=== PATIENT | male | born 1935 | race Caucasian/White ===

== ENCOUNTER 2016-08-01 15:45 | Inpatient (IN) | payer MEDICARE ==
[2016-08-01] MEDS: HYDROcodone/Acetaminophen 10/325 mg Tablet PO PRN (17:45)
[2016-08-01] MEDS: Gabapentin 300 MG CAP PO SCH (20:50)
[2016-08-01] MEDS: Senokot 8.6 MG TAB PO SCH ×2 (20:50→21:06)
[2016-08-01] MEDS: Bisacodyl 5 MG TAB PO SCH (20:50)
[2016-08-01] MEDS: traMADol HCl 50 MG TAB PO SCH (20:50)
[2016-08-01] MEDS: Zolpidem Tartrate 5 MG TAB PO SCH (20:50)
[2016-08-01] MEDS: Brimonidine Tartrate 0.2% Ophth Soln 5 ml Bottle EA EYE SCH (20:52)
[2016-08-01] MEDS: PILOCARPINE HCL EA EYE SCH (20:52)
[2016-08-02] MEDS: traMADol HCl 50 MG TAB PO SCH ×3 (08:31→20:39)
[2016-08-02] MEDS: Aspirin 81 mg Enteric Coated Tablet PO SCH (08:32)
[2016-08-02] MEDS: Multivitamin W/ Minerals 1 TAB PO SCH (08:33)
[2016-08-02] MEDS: Clopidogrel Bisulfate 75 MG TAB PO SCH (08:33)
[2016-08-02] MEDS: Fluticasone Propionate Nasal Spray 16 gm Bottle NASAL SCH (08:34)
[2016-08-02] MEDS: Atorvastatin Calcium 40 MG TAB PO SCH (08:34)
[2016-08-02] MEDS: Brimonidine Tartrate 0.2% Ophth Soln 5 ml Bottle EA EYE SCH ×2 (08:45→20:44)
[2016-08-02] MEDS: Latanoprost 0.005% Ophth Soln 2.5 ml Bottle EA EYE SCH (08:46)
[2016-08-02] MEDS: PILOCARPINE HCL EA EYE SCH ×4 (08:46→20:45)
[2016-08-02] MEDS: HYDROcodone/Acetaminophen 10/325 mg Tablet PO PRN ×2 (10:07→17:12)
[2016-08-02] MEDS: Gabapentin 300 MG CAP PO SCH (20:38)
[2016-08-02] MEDS: Bisacodyl 5 MG TAB PO SCH (20:38)
[2016-08-02] MEDS: Zolpidem Tartrate 5 MG TAB PO SCH (20:44)
[2016-08-02] MEDS: Senokot 8.6 MG TAB PO SCH (20:45)
[2016-08-03] MEDS: HYDROcodone/Acetaminophen 10/325 mg Tablet PO PRN ×6 (00:32→21:37)
[2016-08-03 06:32] LABS: ALT (SGPT) 17 U/L (0-55); AST (SGOT) 20 U/L (5-34); Alkaline Phosphatase 61 U/L (40-150); Anion Gap 12 mmol/L (10-20); BUN (Urea Nitrogen) 36 mg/dL (8.4-25.7); Bilirubin, Total 0.5 mg/dL (0.2-1.2); Calc. Creatinine Clearance 59 mL/min (70-130); Calcium 8.2 mg/dL (7.8-10.44); Carbon Dioxide 24 mmol/L (23-31); Chloride 104 mmol/L (98-107); Estimated GFR-MDRD 52; Protein, Total 5.9 g/dL (5.8-8.1)
[2016-08-03] MEDS: traMADol HCl 50 MG TAB PO SCH ×2 (08:09→14:28)
[2016-08-03] MEDS: Clopidogrel Bisulfate 75 MG TAB PO SCH (08:10)
[2016-08-03] MEDS: Aspirin 81 mg Enteric Coated Tablet PO SCH (08:10)
[2016-08-03] MEDS: Atorvastatin Calcium 40 MG TAB PO SCH (08:10)
[2016-08-03] MEDS: Multivitamin W/ Minerals 1 TAB PO SCH (08:10)
[2016-08-03] MEDS: Fluticasone Propionate Nasal Spray 16 gm Bottle NASAL SCH (08:15)
[2016-08-03] MEDS: Latanoprost 0.005% Ophth Soln 2.5 ml Bottle EA EYE SCH (08:16)
[2016-08-03] MEDS: Brimonidine Tartrate 0.2% Ophth Soln 5 ml Bottle EA EYE SCH ×2 (08:16→21:40)
[2016-08-03] MEDS: PILOCARPINE HCL EA EYE SCH ×4 (08:17→21:39)
[2016-08-03] MEDS ORDERED: HYDROcodone/Acetaminophen 10/325 mg Tablet ONE (21:12)
[2016-08-03] MEDS: Gabapentin 300 MG CAP PO SCH (21:37)
[2016-08-03] MEDS: Zolpidem Tartrate 5 MG TAB PO SCH (21:37)
[2016-08-03] MEDS: Senokot 8.6 MG TAB PO SCH (21:39)
[2016-08-03] MEDS: Bisacodyl 5 MG TAB PO SCH (21:40)
[2016-08-04] MEDS ORDERED: HYDROcodone/Acetaminophen 10/325 mg Tablet ONE ×5 (02:52→16:38)
[2016-08-04] MEDS: HYDROcodone/Acetaminophen 10/325 mg Tablet PO PRN ×5 (02:56→21:27)
[2016-08-04] MEDS: Fluticasone Propionate Nasal Spray 16 gm Bottle NASAL SCH (09:46)
[2016-08-04] MEDS: Multivitamin W/ Minerals 1 TAB PO SCH (09:47)
[2016-08-04] MEDS: Clopidogrel Bisulfate 75 MG TAB PO SCH (09:47)
[2016-08-04] MEDS: Aspirin 81 mg Enteric Coated Tablet PO SCH (09:47)
[2016-08-04] MEDS: Atorvastatin Calcium 40 MG TAB PO SCH (09:47)
[2016-08-04] MEDS: Latanoprost 0.005% Ophth Soln 2.5 ml Bottle EA EYE SCH (09:48)
[2016-08-04] MEDS: PILOCARPINE HCL EA EYE SCH ×4 (09:49→21:33)
[2016-08-04] MEDS: Brimonidine Tartrate 0.2% Ophth Soln 5 ml Bottle EA EYE SCH ×2 (09:49→21:32)
[2016-08-04] MEDS ORDERED: [UNRECOGNIZED DRUG - OTHER] PO PRN (20:07)
[2016-08-04] MEDS ORDERED: EX LAX PO PRN (20:07)
[2016-08-04] MEDS ORDERED: DOCUSATE SODIUM 250 MG PO PRN (20:08)
[2016-08-04] MEDS: Gabapentin 300 MG CAP PO SCH (21:31)
[2016-08-04] MEDS: Bisacodyl 5 MG TAB PO SCH (21:32)
[2016-08-04] MEDS: Zolpidem Tartrate 5 MG TAB PO SCH (21:32)
[2016-08-05] MEDS: HYDROcodone/Acetaminophen 10/325 mg Tablet PO PRN ×6 (01:34→22:29)
[2016-08-05] MEDS: Clopidogrel Bisulfate 75 MG TAB PO SCH (10:02)
[2016-08-05] MEDS: Fluticasone Propionate Nasal Spray 16 gm Bottle NASAL SCH (10:02)
[2016-08-05] MEDS: Multivitamin W/ Minerals 1 TAB PO SCH (10:02)
[2016-08-05] MEDS: Latanoprost 0.005% Ophth Soln 2.5 ml Bottle EA EYE SCH (10:03)
[2016-08-05] MEDS: Brimonidine Tartrate 0.2% Ophth Soln 5 ml Bottle EA EYE SCH ×2 (10:03→21:33)
[2016-08-05] MEDS: Aspirin 81 mg Enteric Coated Tablet PO SCH (10:03)
[2016-08-05] MEDS: Atorvastatin Calcium 40 MG TAB PO SCH (10:03)
[2016-08-05] MEDS: PILOCARPINE HCL EA EYE SCH ×5 (10:54→21:30)
[2016-08-05] MEDS ORDERED: PILOCARPINE EA EYE SCH (21:00)
[2016-08-05] MEDS: Zolpidem Tartrate 5 MG TAB PO SCH (21:27)
[2016-08-05] MEDS: Gabapentin 300 MG CAP PO SCH (21:28)
[2016-08-05] MEDS: Bisacodyl 5 MG TAB PO SCH (21:28)
[2016-08-05] MEDS: Dorzolamide HCl/Timolol Maleate 2%/0.5% Ophth Soln 10 ml Bottle EA EYE SCH (21:33)
[2016-08-06] MEDS ORDERED: HYDROcodone/Acetaminophen 10/325 mg Tablet ONE ×2 (02:38)
[2016-08-06] MEDS: HYDROcodone/Acetaminophen 10/325 mg Tablet PO PRN ×5 (02:41→20:00)
[2016-08-06] MEDS: Fluticasone Propionate Nasal Spray 16 gm Bottle NASAL SCH (08:52)
[2016-08-06] MEDS: Multivitamin W/ Minerals 1 TAB PO SCH (08:53)
[2016-08-06] MEDS: Clopidogrel Bisulfate 75 MG TAB PO SCH (08:53)
[2016-08-06] MEDS: Atorvastatin Calcium 40 MG TAB PO SCH (08:53)
[2016-08-06] MEDS: Aspirin 81 mg Enteric Coated Tablet PO SCH (08:53)
[2016-08-06] MEDS: Brimonidine Tartrate 0.2% Ophth Soln 5 ml Bottle EA EYE SCH ×2 (08:56→20:06)
[2016-08-06] MEDS: Dorzolamide HCl/Timolol Maleate 2%/0.5% Ophth Soln 10 ml Bottle EA EYE SCH ×2 (08:56→20:07)
[2016-08-06] MEDS: PILOCARPINE HCL EA EYE SCH ×4 (09:00→20:11)
[2016-08-06] MEDS: Latanoprost 0.005% Ophth Soln 2.5 ml Bottle EA EYE SCH ×2 (11:15)
[2016-08-06] MEDS: Gabapentin 300 MG CAP PO SCH (20:01)
[2016-08-06] MEDS: Zolpidem Tartrate 5 MG TAB PO SCH (20:01)
[2016-08-06] MEDS: Bisacodyl 5 MG TAB PO SCH (20:01)
[2016-08-07] MEDS: HYDROcodone/Acetaminophen 10/325 mg Tablet PO PRN ×6 (01:16→22:36)
[2016-08-07] MEDS: Multivitamin W/ Minerals 1 TAB PO SCH (08:53)
[2016-08-07] MEDS: Fluticasone Propionate Nasal Spray 16 gm Bottle NASAL SCH (08:53)
[2016-08-07] MEDS: Atorvastatin Calcium 40 MG TAB PO SCH (08:53)
[2016-08-07] MEDS: Clopidogrel Bisulfate 75 MG TAB PO SCH (08:53)
[2016-08-07] MEDS: Aspirin 81 mg Enteric Coated Tablet PO SCH (08:53)
[2016-08-07] MEDS: Brimonidine Tartrate 0.2% Ophth Soln 5 ml Bottle EA EYE SCH ×2 (08:54→21:18)
[2016-08-07] MEDS: Dorzolamide HCl/Timolol Maleate 2%/0.5% Ophth Soln 10 ml Bottle EA EYE SCH ×2 (08:55→21:16)
[2016-08-07] MEDS: PILOCARPINE HCL EA EYE SCH ×4 (08:56→21:21)
[2016-08-07] MEDS: Latanoprost 0.005% Ophth Soln 2.5 ml Bottle EA EYE SCH ×2 (08:56)
[2016-08-07] MEDS ORDERED: HYDROcodone/Acetaminophen 10/325 mg Tablet ONE ×3 (14:00→14:08)
[2016-08-07 16:55] LABS: ALT (SGPT) 22 U/L (0-55); AST (SGOT) 24 U/L (5-34); Alkaline Phosphatase 72 U/L (40-150); Anion Gap 13 mmol/L (10-20); BUN (Urea Nitrogen) 31 mg/dL (8.4-25.7); Bilirubin, Total 0.3 mg/dL (0.2-1.2); Calc. Creatinine Clearance 61 mL/min (70-130); Calcium 8.7 mg/dL (7.8-10.44); Carbon Dioxide 23 mmol/L (23-31); Chloride 104 mmol/L (98-107); Estimated GFR-MDRD 55; Globulin 3.2 g/dL (2.4-3.5); Protein, Total 6.3 g/dL (5.8-8.1)
[2016-08-07] MEDS: Gabapentin 300 MG CAP PO SCH (21:19)
[2016-08-07] MEDS: Bisacodyl 5 MG TAB PO SCH (21:19)
[2016-08-07] MEDS: Zolpidem Tartrate 5 MG TAB PO SCH (22:35)
[2016-08-08] MEDS: HYDROcodone/Acetaminophen 10/325 mg Tablet PO PRN ×5 (02:34→20:57)
[2016-08-08] MEDS: Multivitamin W/ Minerals 1 TAB PO SCH (09:18)
[2016-08-08] MEDS: Atorvastatin Calcium 40 MG TAB PO SCH (09:18)
[2016-08-08] MEDS: Clopidogrel Bisulfate 75 MG TAB PO SCH (09:18)
[2016-08-08] MEDS: Fluticasone Propionate Nasal Spray 16 gm Bottle NASAL SCH (09:18)
[2016-08-08] MEDS: Aspirin 81 mg Enteric Coated Tablet PO SCH (09:18)
[2016-08-08] MEDS: Brimonidine Tartrate 0.2% Ophth Soln 5 ml Bottle EA EYE SCH ×2 (09:20→21:01)
[2016-08-08] MEDS: PILOCARPINE HCL EA EYE SCH ×4 (09:21→21:02)
[2016-08-08] MEDS: Dorzolamide HCl/Timolol Maleate 2%/0.5% Ophth Soln 10 ml Bottle EA EYE SCH ×2 (09:21→21:02)
[2016-08-08] MEDS: Latanoprost 0.005% Ophth Soln 2.5 ml Bottle EA EYE SCH ×2 (09:21)
[2016-08-08] MEDS: Gabapentin 300 MG CAP PO SCH (20:56)
[2016-08-08] MEDS: Zolpidem Tartrate 5 MG TAB PO SCH (20:57)
[2016-08-08] MEDS: Bisacodyl 5 MG TAB PO SCH (20:58)
[2016-08-09] MEDS: HYDROcodone/Acetaminophen 10/325 mg Tablet PO PRN ×5 (02:05→21:34)
[2016-08-09] MEDS: Atorvastatin Calcium 40 MG TAB PO SCH (08:55)
[2016-08-09] MEDS: Aspirin 81 mg Enteric Coated Tablet PO SCH (08:55)
[2016-08-09] MEDS: Clopidogrel Bisulfate 75 MG TAB PO SCH (08:55)
[2016-08-09] MEDS: Multivitamin W/ Minerals 1 TAB PO SCH (08:55)
[2016-08-09] MEDS: Fluticasone Propionate Nasal Spray 16 gm Bottle NASAL SCH (08:56)
[2016-08-09] MEDS: Brimonidine Tartrate 0.2% Ophth Soln 5 ml Bottle EA EYE SCH ×2 (08:58→21:37)
[2016-08-09] MEDS: PILOCARPINE HCL EA EYE SCH ×4 (08:59→21:39)
[2016-08-09] MEDS: Dorzolamide HCl/Timolol Maleate 2%/0.5% Ophth Soln 10 ml Bottle EA EYE SCH ×2 (08:59→21:38)
[2016-08-09] MEDS: Latanoprost 0.005% Ophth Soln 2.5 ml Bottle EA EYE SCH ×2 (08:59)
[2016-08-09] MEDS ORDERED: Triamterene/Hydrochlorothiazide 37.5 mg/25 mg Tablet PO SCH (11:30)
[2016-08-09] MEDS: Gabapentin 300 MG CAP PO SCH (21:31)
[2016-08-09] MEDS: Zolpidem Tartrate 5 MG TAB PO SCH (21:31)
[2016-08-09] MEDS: Bisacodyl 5 MG TAB PO SCH (21:31)
[2016-08-10] MEDS: HYDROcodone/Acetaminophen 10/325 mg Tablet PO PRN ×5 (04:02→21:17)
[2016-08-10 06:36] LABS: Anion Gap 12 mmol/L (10-20); BUN (Urea Nitrogen) 29 mg/dL (8.4-25.7); Calc. Creatinine Clearance 62 mL/min (70-130); Calcium 8.4 mg/dL (7.8-10.44); Carbon Dioxide 24 mmol/L (23-31); Chloride 105 mmol/L (98-107); Estimated GFR-MDRD 54
[2016-08-10] MEDS: Multivitamin W/ Minerals 1 TAB PO SCH (08:45)
[2016-08-10] MEDS: Clopidogrel Bisulfate 75 MG TAB PO SCH (08:45)
[2016-08-10] MEDS: Atorvastatin Calcium 40 MG TAB PO SCH (08:45)
[2016-08-10] MEDS: Aspirin 81 mg Enteric Coated Tablet PO SCH (08:46)
[2016-08-10] MEDS: Triamterene/Hydrochlorothiazide 37.5 mg/25 mg Tablet PO SCH (08:46)
[2016-08-10] MEDS: Fluticasone Propionate Nasal Spray 16 gm Bottle NASAL SCH (08:49)
[2016-08-10] MEDS: PILOCARPINE HCL EA EYE SCH ×4 (08:49→21:24)
[2016-08-10] MEDS: Dorzolamide HCl/Timolol Maleate 2%/0.5% Ophth Soln 10 ml Bottle EA EYE SCH ×2 (08:50→21:19)
[2016-08-10] MEDS: Brimonidine Tartrate 0.2% Ophth Soln 5 ml Bottle EA EYE SCH ×2 (08:50→21:19)
[2016-08-10] MEDS: Latanoprost 0.005% Ophth Soln 2.5 ml Bottle EA EYE SCH ×2 (08:51)
[2016-08-10] MEDS ORDERED: HYDROcodone/Acetaminophen 10/325 mg Tablet ONE (12:54)
[2016-08-10] MEDS: Bisacodyl 5 MG TAB PO SCH (21:14)
[2016-08-10] MEDS: Gabapentin 300 MG CAP PO SCH (21:15)
[2016-08-10] MEDS: Zolpidem Tartrate 5 MG TAB PO SCH (21:16)
[2016-08-11] MEDS: HYDROcodone/Acetaminophen 10/325 mg Tablet PO PRN ×5 (01:42→20:57)
[2016-08-11 06:23] LABS: Anion Gap 13 mmol/L (10-20); BUN (Urea Nitrogen) 29 mg/dL (8.4-25.7); Calc. Creatinine Clearance 59 mL/min (70-130); Calcium 8.6 mg/dL (7.8-10.44); Carbon Dioxide 25 mmol/L (23-31); Chloride 104 mmol/L (98-107); Estimated GFR-MDRD 52
[2016-08-11] MEDS ORDERED: HYDROcodone/Acetaminophen 10/325 mg Tablet PO PRN (09:10)
[2016-08-11] MEDS: Multivitamin W/ Minerals 1 TAB PO SCH (09:24)
[2016-08-11] MEDS: Clopidogrel Bisulfate 75 MG TAB PO SCH (09:24)
[2016-08-11] MEDS: Atorvastatin Calcium 40 MG TAB PO SCH (09:24)
[2016-08-11] MEDS: Aspirin 81 mg Enteric Coated Tablet PO SCH (09:24)
[2016-08-11] MEDS: Latanoprost 0.005% Ophth Soln 2.5 ml Bottle EA EYE SCH ×2 (09:25)
[2016-08-11] MEDS: Fluticasone Propionate Nasal Spray 16 gm Bottle NASAL SCH (09:25)
[2016-08-11] MEDS: PILOCARPINE HCL EA EYE SCH ×4 (09:25→21:06)
[2016-08-11] MEDS: Triamterene/Hydrochlorothiazide 37.5 mg/25 mg Tablet PO SCH (09:25)
[2016-08-11] MEDS: Dorzolamide HCl/Timolol Maleate 2%/0.5% Ophth Soln 10 ml Bottle EA EYE SCH ×2 (09:26→21:04)
[2016-08-11] MEDS: Brimonidine Tartrate 0.2% Ophth Soln 5 ml Bottle EA EYE SCH ×2 (09:26→21:03)
[2016-08-11] MEDS ORDERED: HYDROcodone/Acetaminophen 10/325 mg Tablet ONE (11:34)
[2016-08-11] MEDS: Zolpidem Tartrate 5 MG TAB PO SCH (20:59)
[2016-08-11] MEDS: Bisacodyl 5 MG TAB PO SCH (21:00)
[2016-08-11] MEDS: Gabapentin 300 MG CAP PO SCH (21:00)
[2016-08-12] MEDS: HYDROcodone/Acetaminophen 10/325 mg Tablet PO PRN ×3 (04:41→13:12)
--- NOTE | 2016-08-12 07:03 | RAD ---
CHEST TWO VIEWS 08/11/2016 Comparison is made with a prior study of 03/31/2006. While the depth of inspiration is somewhat sha llow which crowds the basilar markings, on lateral view there is increased density behind the heart. A basilar infiltrate is possible, particularly on the right. The upper lobes are clear. A small opaque foreign body like a wire overlies the right chest and was seen on prior studies. Median ster notomy sutures are present from prior surgery. The cardiac size is stable with no congestive change . IMPRESSION: Possible right basilar infiltrate. Follow-up films will be helpful. POS: HOME
[2016-08-12] MEDS: Fluticasone Propionate Nasal Spray 16 gm Bottle NASAL SCH (08:55)
[2016-08-12] MEDS: Brimonidine Tartrate 0.2% Ophth Soln 5 ml Bottle EA EYE SCH ×2 (08:57→21:08)
[2016-08-12] MEDS: Atorvastatin Calcium 40 MG TAB PO SCH (08:57)
[2016-08-12] MEDS: Clopidogrel Bisulfate 75 MG TAB PO SCH (08:57)
[2016-08-12] MEDS: Latanoprost 0.005% Ophth Soln 2.5 ml Bottle EA EYE SCH ×2 (08:57)
[2016-08-12] MEDS: Aspirin 81 mg Enteric Coated Tablet PO SCH (08:57)
[2016-08-12] MEDS: Dorzolamide HCl/Timolol Maleate 2%/0.5% Ophth Soln 10 ml Bottle EA EYE SCH ×2 (08:57→21:09)
[2016-08-12] MEDS: Furosemide 40 MG TAB PO SCH (08:57)
[2016-08-12] MEDS: Multivitamin W/ Minerals 1 TAB PO SCH (08:57)
[2016-08-12] MEDS: PILOCARPINE HCL EA EYE SCH ×4 (08:58→21:13)
[2016-08-12] MEDS: Triamcinolone 0.1% Cream 15 GM TUBE TOP SCH ×2 (13:13→21:11)
[2016-08-12] MEDS ORDERED: diphenhydrAMINE HCl 25 MG CAP PO PRN (14:33)
[2016-08-12] MEDS ORDERED: Acetaminophen 325 MG TAB PO PRN (17:00)
[2016-08-12] MEDS ORDERED: traMADol HCl 50 MG TAB PO PRN (17:00)
[2016-08-12] MEDS: Bisacodyl 5 MG TAB PO SCH (21:08)
[2016-08-12] MEDS: Zolpidem Tartrate 5 MG TAB PO SCH (21:11)
[2016-08-12] MEDS: Gabapentin 300 MG CAP PO SCH (21:13)
[2016-08-12] MEDS: traMADol HCl 50 MG TAB PO PRN (22:28)
[2016-08-12] MEDS: Acetaminophen 325 MG TAB PO PRN (22:29)
[2016-08-13] MEDS: Acetaminophen 325 MG TAB PO PRN ×5 (03:09→21:34)
[2016-08-13] MEDS: traMADol HCl 50 MG TAB PO PRN ×5 (03:10→21:33)
[2016-08-13 07:06] LABS: ALT (SGPT) 29 U/L (0-55); AST (SGOT) 29 U/L (5-34); Alkaline Phosphatase 63 U/L (40-150); Anion Gap 12 mmol/L (10-20); BUN (Urea Nitrogen) 35 mg/dL (8.4-25.7); Bilirubin, Total 0.2 mg/dL (0.2-1.2); Calc. Creatinine Clearance 57 mL/min (70-130); Calcium 8.5 mg/dL (7.8-10.44); Carbon Dioxide 27 mmol/L (23-31); Estimated GFR-MDRD 45; Globulin 2.9 g/dL (2.4-3.5); Protein, Total 5.8 g/dL (5.8-8.1)
[2016-08-13 07:14] LABS: Chloride 103 mmol/L (98-107)
[2016-08-13] MEDS: Furosemide 40 MG TAB PO SCH (07:48)
[2016-08-13] MEDS: Aspirin 81 mg Enteric Coated Tablet PO SCH (08:36)
[2016-08-13] MEDS: Clopidogrel Bisulfate 75 MG TAB PO SCH (08:36)
[2016-08-13] MEDS: Atorvastatin Calcium 40 MG TAB PO SCH (08:36)
[2016-08-13] MEDS: Multivitamin W/ Minerals 1 TAB PO SCH (08:36)
[2016-08-13] MEDS: Dorzolamide HCl/Timolol Maleate 2%/0.5% Ophth Soln 10 ml Bottle EA EYE SCH ×2 (08:43→21:37)
[2016-08-13] MEDS: Brimonidine Tartrate 0.2% Ophth Soln 5 ml Bottle EA EYE SCH ×2 (08:44→21:37)
[2016-08-13] MEDS: Latanoprost 0.005% Ophth Soln 2.5 ml Bottle EA EYE SCH ×2 (08:45)
[2016-08-13] MEDS: PILOCARPINE HCL EA EYE SCH ×5 (08:46→21:38)
[2016-08-13] MEDS: Triamcinolone 0.1% Cream 15 GM TUBE TOP SCH ×3 (08:46→21:34)
[2016-08-13] MEDS: Triamterene/Hydrochlorothiazide 37.5 mg/25 mg Tablet PO SCH (08:57)
[2016-08-13] MEDS: Fluticasone Propionate Nasal Spray 16 gm Bottle NASAL SCH (08:57)
[2016-08-13] MEDS: Zolpidem Tartrate 5 MG TAB PO SCH (21:30)
[2016-08-13] MEDS: Bisacodyl 5 MG TAB PO SCH (21:31)
[2016-08-13] MEDS: Gabapentin 300 MG CAP PO SCH (21:32)
[2016-08-14] MEDS: Acetaminophen 325 MG TAB PO PRN ×6 (01:42→22:34)
[2016-08-14] MEDS: traMADol HCl 50 MG TAB PO PRN ×6 (01:43→22:33)
[2016-08-14 06:58] LABS: ALT (SGPT) 34 U/L (0-55); AST (SGOT) 34 U/L (5-34); Alkaline Phosphatase 71 U/L (40-150); Anion Gap 11 mmol/L (10-20); BUN (Urea Nitrogen) 33 mg/dL (8.4-25.7); Bilirubin, Total 0.3 mg/dL (0.2-1.2); Calc. Creatinine Clearance 62 mL/min (70-130); Calcium 8.9 mg/dL (7.8-10.44); Carbon Dioxide 30 mmol/L (23-31); Chloride 100 mmol/L (98-107); Estimated GFR-MDRD 50; Globulin 3.1 g/dL (2.4-3.5); Protein, Total 6.4 g/dL (5.8-8.1)
[2016-08-14] MEDS: Triamcinolone 0.1% Cream 15 GM TUBE TOP SCH ×2 (08:37→21:57)
[2016-08-14] MEDS: PILOCARPINE HCL EA EYE SCH ×4 (08:37→21:59)
[2016-08-14] MEDS: Clopidogrel Bisulfate 75 MG TAB PO SCH (08:38)
[2016-08-14] MEDS: Atorvastatin Calcium 40 MG TAB PO SCH (08:38)
[2016-08-14] MEDS: Aspirin 81 mg Enteric Coated Tablet PO SCH (08:38)
[2016-08-14] MEDS: Multivitamin W/ Minerals 1 TAB PO SCH (08:38)
[2016-08-14] MEDS: Fluticasone Propionate Nasal Spray 16 gm Bottle NASAL SCH (08:40)
[2016-08-14] MEDS: Brimonidine Tartrate 0.2% Ophth Soln 5 ml Bottle EA EYE SCH ×2 (08:41→21:59)
[2016-08-14] MEDS: Dorzolamide HCl/Timolol Maleate 2%/0.5% Ophth Soln 10 ml Bottle EA EYE SCH ×2 (08:42→21:58)
[2016-08-14] MEDS: Latanoprost 0.005% Ophth Soln 2.5 ml Bottle EA EYE SCH ×2 (08:44)
[2016-08-14] MEDS: Triamterene/Hydrochlorothiazide 37.5 mg/25 mg Tablet PO SCH (10:07)
--- NOTE | 2016-08-14 20:11 | RAD ---
CHEST TWO VIEWS: 08/14/16 Comparison is made with a 08/11 study. The heart size is stable, being only mildly enlarged. There are no congestive changes. The right hem idiaphragm is a little elevated but no different. There does appear to be a little gas seen beneath it but I believe it is in bowel that is trapped between the liver and diaphragm. There is still some increased density behind the heart on the lateral view and may be the barest amount of left basilar streaking. Minimal infiltrates here are suspected. IMPRESSION: Marginal changes since 08/11. POS: HOME
[2016-08-14] MEDS: Bisacodyl 5 MG TAB PO SCH (21:52)
[2016-08-14] MEDS: Zolpidem Tartrate 5 MG TAB PO SCH (21:52)
[2016-08-14] MEDS: Gabapentin 300 MG CAP PO SCH (21:52)
[2016-08-15] MEDS: traMADol HCl 50 MG TAB PO PRN ×5 (02:53→19:43)
[2016-08-15] MEDS: Acetaminophen 325 MG TAB PO PRN ×5 (02:54→19:43)
--- NOTE | 2016-08-15 07:16 | CT ---
CT OF THE CHEST WITHOUT CONTRAST: Date: 08/15/[address] of the chest was performed without IV contrast for evaluation of an abnormal chest x-ray d one yesterday. Axial slices were acquired and coronal reconstructions were done. FINDINGS: The right hemidiaphragm is rather elevated. No distinct cause for this is seen, though the liver is rather generous in size, which may contribute. As a result, there is compressive atelectasis in the right lower chest which is causing some of the streaking that is seen on the chest x-ray. An actual lobar consolidation was not appreciated. There is some significant compressive atelectasis of the ri ght lower lobe near the hilum as a result. At most, there is a nondescript area of slight increased opacity in the right lower lobe posteriorly on scan 31 that could be the most minimal of infiltrates or even a small mass, but its borders are very indistinct. I would merely watch it at this point. E lsewhere, there is a 6.0 mm noncalcified nodule in the periphery of the right upper lobe near the pl eura and a second 5-6 mm noncalcified nodule in the superior segment of the left lower lobe near the pleural surface. The findings are nonspecific and normally one would just choose to follow these wi th scans, perhaps in 6 months if there is no strong suspicious of cancer elsewhere, sooner if there is. The aorta is extremely ectatic and even weaves into the right chest for pare of its course before it goes through the diaphragm. Aortic calcifications are present, as well as coronary artery calcifica tions. The patient's main pulmonary arteries are large, measuring a little over 3.0 cm in width. Thi s sometimes can signify pulmonary arterial hypertension. The heart is large, but there are no perica rdial effusions. No mediastinal mass or adenopathy was apparent. The scans go a short ways into the upper abdomen. Not all of the liver is seen, but it does seem gen erous in size. Additionally, much of the patient's gallbladder was seen, which is generous in size, measuring just over 10.0 cm in length. No wall thickening or stones were seen of the visible section s. The remainder of the upper abdominal structures showed no gross pathology within the limitations of this noncontrast study. IMPRESSION: 1. Elevation of the right hemidiaphragm, cause unknown, but some hepatic enlargement may contribute . 2. Compressive atelectasis, particularly of the right lower lobe due to the raised diaphragm. This appears to be what is causing the streaking on the chest x-ray. There is some minimal dependent atel ectasis in the left lower lobe. 3. Small noncalcified nodules as described above, one in the right upper lobe and one in the left u pper lobe. Follow-up is discussed above. 4. Nondescript slightly nodular area with indistinct margins in the right lower lobe that could be very minimal infiltrate or even a small mass. At this point, it would be best if the patient present s like he has pneumonia, to go ahead and treat him for such, and get a follow-up look at this area o n a scan a while post treatment. 5. Coronary arteriosclerosis. 6. Cardiomegaly. 7. Possible pulmonary arterial hypertension. POS: HOME
[2016-08-15] MEDS: Aspirin 81 mg Enteric Coated Tablet PO SCH (09:49)
[2016-08-15] MEDS: Multivitamin W/ Minerals 1 TAB PO SCH (09:49)
[2016-08-15] MEDS: Clopidogrel Bisulfate 75 MG TAB PO SCH (09:49)
[2016-08-15] MEDS: Atorvastatin Calcium 40 MG TAB PO SCH (09:50)
[2016-08-15] MEDS: Fluticasone Propionate Nasal Spray 16 gm Bottle NASAL SCH (09:50)
[2016-08-15] MEDS: PILOCARPINE HCL EA EYE SCH ×4 (09:50→20:52)
[2016-08-15] MEDS: Triamcinolone 0.1% Cream 15 GM TUBE TOP SCH ×2 (09:50→20:55)
[2016-08-15] MEDS: Triamterene/Hydrochlorothiazide 37.5 mg/25 mg Tablet PO SCH (09:50)
[2016-08-15] MEDS: Dorzolamide HCl/Timolol Maleate 2%/0.5% Ophth Soln 10 ml Bottle EA EYE SCH ×2 (09:51→20:52)
[2016-08-15] MEDS: Latanoprost 0.005% Ophth Soln 2.5 ml Bottle EA EYE SCH ×2 (09:51)
[2016-08-15] MEDS: Brimonidine Tartrate 0.2% Ophth Soln 5 ml Bottle EA EYE SCH ×2 (09:52→20:52)
[2016-08-15] MEDS: Zolpidem Tartrate 5 MG TAB PO SCH (20:50)
[2016-08-15] MEDS: Gabapentin 300 MG CAP PO SCH (20:51)
[2016-08-15] MEDS: Bisacodyl 5 MG TAB PO SCH (20:51)
[2016-08-16] MEDS: Acetaminophen 325 MG TAB PO PRN ×4 (05:34→21:07)
[2016-08-16] MEDS: traMADol HCl 50 MG TAB PO PRN ×4 (05:35→21:07)
[2016-08-16] MEDS: Multivitamin W/ Minerals 1 TAB PO SCH (08:41)
[2016-08-16] MEDS: Clopidogrel Bisulfate 75 MG TAB PO SCH (08:41)
[2016-08-16] MEDS: Atorvastatin Calcium 40 MG TAB PO SCH (08:41)
[2016-08-16] MEDS: Aspirin 81 mg Enteric Coated Tablet PO SCH (08:42)
[2016-08-16] MEDS: Triamterene/Hydrochlorothiazide 37.5 mg/25 mg Tablet PO SCH (08:57)
[2016-08-16] MEDS: PILOCARPINE HCL EA EYE SCH ×4 (08:59→21:13)
[2016-08-16] MEDS: Brimonidine Tartrate 0.2% Ophth Soln 5 ml Bottle EA EYE SCH ×2 (08:59→21:09)
[2016-08-16] MEDS: Latanoprost 0.005% Ophth Soln 2.5 ml Bottle EA EYE SCH ×2 (09:01)
[2016-08-16] MEDS: Dorzolamide HCl/Timolol Maleate 2%/0.5% Ophth Soln 10 ml Bottle EA EYE SCH ×2 (09:02→21:11)
[2016-08-16] MEDS: Triamcinolone 0.1% Cream 15 GM TUBE TOP SCH ×2 (09:11→21:06)
[2016-08-16] MEDS: Fluticasone Propionate Nasal Spray 16 gm Bottle NASAL SCH (09:39)
[2016-08-16] MEDS ORDERED: Lidocaine 1% 20 ML MDV ONE (13:26)
[2016-08-16] MEDS: Zolpidem Tartrate 5 MG TAB PO SCH (21:06)
[2016-08-16] MEDS: Gabapentin 300 MG CAP PO SCH (21:06)
[2016-08-16] MEDS: Bisacodyl 5 MG TAB PO SCH (21:06)
[2016-08-17] MEDS: Multivitamin W/ Minerals 1 TAB PO SCH (08:14)
[2016-08-17] MEDS: Acetaminophen 325 MG TAB PO PRN ×3 (08:14→21:05)
[2016-08-17] MEDS: Clopidogrel Bisulfate 75 MG TAB PO SCH (08:14)
[2016-08-17] MEDS: Aspirin 81 mg Enteric Coated Tablet PO SCH (08:14)
[2016-08-17] MEDS: Atorvastatin Calcium 40 MG TAB PO SCH (08:15)
[2016-08-17] MEDS: Triamterene/Hydrochlorothiazide 37.5 mg/25 mg Tablet PO SCH (08:15)
[2016-08-17] MEDS: traMADol HCl 50 MG TAB PO PRN ×3 (08:16→21:05)
[2016-08-17] MEDS: PILOCARPINE HCL EA EYE SCH ×4 (08:18→21:10)
[2016-08-17] MEDS: Dorzolamide HCl/Timolol Maleate 2%/0.5% Ophth Soln 10 ml Bottle EA EYE SCH ×2 (08:20→21:10)
[2016-08-17] MEDS: Fluticasone Propionate Nasal Spray 16 gm Bottle NASAL SCH (08:21)
[2016-08-17] MEDS: Brimonidine Tartrate 0.2% Ophth Soln 5 ml Bottle EA EYE SCH ×2 (08:21→21:10)
[2016-08-17] MEDS: Triamcinolone 0.1% Cream 15 GM TUBE TOP SCH ×2 (08:23→21:10)
[2016-08-17] MEDS: Latanoprost 0.005% Ophth Soln 2.5 ml Bottle EA EYE SCH ×2 (08:30)
[2016-08-17] MEDS: Zolpidem Tartrate 5 MG TAB PO SCH (21:10)
[2016-08-17] MEDS: Gabapentin 300 MG CAP PO SCH (21:10)
[2016-08-17] MEDS: Bisacodyl 5 MG TAB PO SCH (21:10)
[2016-08-18 06:09] VITALS: BMI 31.1
[2016-08-18] MEDS: traMADol HCl 50 MG TAB PO PRN ×3 (07:28→22:07)
[2016-08-18] MEDS: Acetaminophen 325 MG TAB PO PRN ×3 (07:29→22:07)
[2016-08-18] MEDS: PILOCARPINE HCL EA EYE SCH ×4 (08:57→21:15)
[2016-08-18] MEDS: Atorvastatin Calcium 40 MG TAB PO SCH (08:57)
[2016-08-18] MEDS: Fluticasone Propionate Nasal Spray 16 gm Bottle NASAL SCH (08:57)
[2016-08-18] MEDS: Clopidogrel Bisulfate 75 MG TAB PO SCH (08:57)
[2016-08-18] MEDS: Dorzolamide HCl/Timolol Maleate 2%/0.5% Ophth Soln 10 ml Bottle EA EYE SCH ×2 (08:57→21:14)
[2016-08-18] MEDS: Multivitamin W/ Minerals 1 TAB PO SCH (08:57)
[2016-08-18] MEDS: Brimonidine Tartrate 0.2% Ophth Soln 5 ml Bottle EA EYE SCH ×2 (08:57→21:14)
[2016-08-18] MEDS: Aspirin 81 mg Enteric Coated Tablet PO SCH (08:57)
[2016-08-18] MEDS: Latanoprost 0.005% Ophth Soln 2.5 ml Bottle EA EYE SCH ×2 (08:57)
[2016-08-18] MEDS: Triamcinolone 0.1% Cream 15 GM TUBE TOP SCH ×2 (08:58→21:16)
[2016-08-18] MEDS: Triamterene/Hydrochlorothiazide 37.5 mg/25 mg Tablet PO SCH (08:58)
[2016-08-18] MEDS: Bisacodyl 5 MG TAB PO SCH (21:13)
[2016-08-18] MEDS: Gabapentin 300 MG CAP PO SCH (21:14)
[2016-08-18] MEDS: Zolpidem Tartrate 5 MG TAB PO SCH (21:16)
[2016-08-19] MEDS: traMADol HCl 50 MG TAB PO PRN ×2 (05:40→09:48)
[2016-08-19] MEDS: Acetaminophen 325 MG TAB PO PRN ×2 (05:40→09:47)
[2016-08-19 06:21] VITALS: BP 146/71; TEMP 97.7
[2016-08-19] MEDS: Atorvastatin Calcium 40 MG TAB PO SCH (08:46)
[2016-08-19] MEDS: Multivitamin W/ Minerals 1 TAB PO SCH (08:47)
[2016-08-19] MEDS: Clopidogrel Bisulfate 75 MG TAB PO SCH (08:47)
[2016-08-19] MEDS: Aspirin 81 mg Enteric Coated Tablet PO SCH (08:47)
[2016-08-19] MEDS: Brimonidine Tartrate 0.2% Ophth Soln 5 ml Bottle EA EYE SCH (08:48)
[2016-08-19] MEDS: Dorzolamide HCl/Timolol Maleate 2%/0.5% Ophth Soln 10 ml Bottle EA EYE SCH (08:49)
[2016-08-19] MEDS: Latanoprost 0.005% Ophth Soln 2.5 ml Bottle EA EYE SCH ×2 (08:50)
[2016-08-19] MEDS: Fluticasone Propionate Nasal Spray 16 gm Bottle NASAL SCH (08:50)
[2016-08-19] MEDS: PILOCARPINE HCL EA EYE SCH (08:50)
[2016-08-19] MEDS: Triamcinolone 0.1% Cream 15 GM TUBE TOP SCH (08:51)
[2016-08-19] MEDS: Triamterene/Hydrochlorothiazide 37.5 mg/25 mg Tablet PO SCH (08:51)
== END 2016-08-19 10:32 | disposition home or self-care (01) | DRG 561 ==
LOC: BURMED 15:45
PROVIDERS: ADMIT Family Medicine; ATTEND Family Medicine
DX: Z47.1 Aftercare following joint replacement surgery (principal); E87.70 Fluid overload, unspecified; Z95.1 Presence of aortocoronary bypass graft; R91.1 Solitary pulmonary nodule; N28.9 Disorder of kidney and ureter, unspecified; I25.10 Atherosclerotic heart disease of native coronary artery without angina pectoris; E78.5 Hyperlipidemia, unspecified; I10 Essential (primary) hypertension
CPT/HCPCS: 36415; 36416; 71020; 71250; 80048; 80053; G8978-GP-CJ; G8979-GP-CI; J2001